=== PATIENT | male | born 1950 | race Hispanic/Latino ===

== ENCOUNTER → 2021-05-20 | Outpatient (CLI) | payer OTHER | END | disposition home or self-care (01) | LOC: SHCH 09:47 | PROVIDERS: ATTEND Internal Medicine Cardiovascular Disease | DX: I35.0 Nonrheumatic aortic (valve) stenosis (principal) | CPT/HCPCS: 93306; 93356 ==

== ENCOUNTER 2021-06-30 05:49 | Day surgery (SDC) | payer OTHER ==
[2021-06-27 10:44] LABS: BASOPHILS % (AUTO) 0.7 % (0.0-5.0); EOSINOPHILS % (AUTO) 3.3 % (0.0-8.0); HEMATOCRIT 34.3 % (42-54); LYMPHOCYTES % (AUTO) 16.6 % (21.0-51.0); MEAN CORPUSCULAR HEMOGLOBIN 32.5 pg (27.0-33.0); MEAN CORPUSCULAR HGB CONC 31.8 g/dL (32.0-36.0); MEAN CORPUSCULAR VOLUME 102.4 fL (79-99); NEUTROPHILS % (AUTO) 72.2 % (40.0-77.0); PLATELET COUNT (AUTO) 175 K/uL (130-400); RED BLOOD CELL COUNT(AUTO) 3.35 MIL/uL (4.50-6.20); RED CELL DISTRIBUTION WIDTH 13.8 % (11.0-15.5); WHITE BLOOD COUNT (AUTO) 8.3 K/uL (4.8-10.8)
[2021-06-27 10:45] LABS: APPEARANCE,URINE Clear (CLEAR); BILIRUBIN,URINE Negative (NEGATIVE); COLOR,URINE Dark Yellow (YELLOW); GLUCOSE, URINE (UA) Negative (NEGATIVE); KETONES,URINE Trace mg/dL (NEGATIVE); LEUKOCYTE ESTERASE ,URINE Negative (NEGATIVE); NITRATE,URINE Negative (NEGATIVE); OCCULT BLOOD,URINE Negative (NEGATIVE); PROTEIN,URINE Trace mg/dL (NEGATIVE)
[2021-06-27 10:52] LABS: CREATININE 1.2 mg/dL (0.5-1.5)
[2021-06-27 10:56] LABS: POTASSIUM 6.2 mmol/L (3.5-5.1)
[2021-06-27 11:13] LABS: BACTERIA,URINE Rare /HPF (None Seen); RBC,URINE 0-1 /HPF (0-1); SQUAMOUS EPITHELIAL CELL,UR Rare /HPF (0-2); WBC,URINE 0-1 /HPF (0-1)
[2021-06-27 11:48] LABS: INR 1.04 (0.85-1.15); PROTHROMBIN TIME 11.3 SEC (9.6-11.6)
[2021-06-27 11:49] LABS: PARTIAL THROMBOPLASTIN TIME 26.1 SEC (26.3-35.5)
[2021-06-30] VITALS (13 sets, daily range): BP systolic 102–172; BP diastolic 58–81
[~2021-06-30] VITALS: Ht 170.2 cm; Wt 65.3 kg
[~2021-06-30 05:49] MED LIST: ASPI-1022 PO; ATOR-2 PO; CARB-242 OP; CYCL100S4 PO; DILT180C88 PO; FERS325 PO; FINA5TAB41 PO; INSU100V12 SQ; METF-444 PO; METO-391 PO; MULT-1192 PO; vitamin d PO
[2021-06-30] MEDS ORDERED: 0.9%NACL 1000ML 1,000 ML IV ONE (06:20)
[2021-06-30 06:24] LABS: CREATININE 1.3 mg/dL (0.5-1.5); POTASSIUM 5.1 mmol/L (3.5-5.1)
[2021-06-30] MEDS ORDERED: MIDAZOLAM HCL 1 MG/ML 2ML VIAL ONE (07:33)
[2021-06-30] MEDS ORDERED: FENTANYL CITRATE PF 50 MCG/1 ML 2ML VIAL ONE (07:33)
[2021-06-30] MEDS ORDERED: IOHEXOL 350 MG/ML 100ML INFUS..BTL IV ONE (07:33)
[2021-06-30] MEDS ORDERED: NITROGLYCERIN 2 MG VIAL IV ONE (07:33)
[2021-06-30] MEDS ORDERED: HEPARIN 10,000 UNIT/10ML (1,000 UNIT/ML) VIAL ONE (07:33)
[2021-06-30] MEDS ORDERED: LIDOCAINE HCL 400MG/20ML VIAL ONE (07:34)
[2021-06-30] MEDS ORDERED: 0.9%NACL 1000ML 1,000 ML IV SCH (10:00)
[2021-06-30] MEDS ORDERED: DEXTROSE 50%-WATER 50 ML DISP.SYRIN IV PRN (10:00)
[2021-06-30] MEDS ORDERED: INSULIN HUMULIN R 100 UNIT/ML 3ML SQ SCH (11:30)
== END 2021-06-30 17:40 | disposition home or self-care (01) ==
LOC: DAH 05:49
PROVIDERS: ATTEND Internal Medicine Cardiovascular Disease
DX: I35.0 Nonrheumatic aortic (valve) stenosis (principal); I25.719 Atherosclerosis of autologous vein coronary artery bypass graft(s) with unspecified angina pectoris; I25.119 Atherosclerotic heart disease of native coronary artery with unspecified angina pectoris; I25.82 Chronic total occlusion of coronary artery; I27.20 Pulmonary hypertension, unspecified; I11.0 Hypertensive heart disease with heart failure; I50.32 Chronic diastolic (congestive) heart failure; E78.5 Hyperlipidemia, unspecified; E11.9 Type 2 diabetes mellitus without complications; D50.0 Iron deficiency anemia secondary to blood loss (chronic); Z79.01 Long term (current) use of anticoagulants; Z79.82 Long term (current) use of aspirin; Z79.84 Long term (current) use of oral hypoglycemic drugs; Z79.899 Other long term (current) drug therapy; Z98.890 Other specified postprocedural states
CPT/HCPCS: 36415; 71045; 80048; 81001; 82948; 85025; 85610; 85730; 93005; 93461; 99156; 99157; A4606; C1760; C1769; C1893; C1894; J1644; J2250; J3010; J3490; J7030; Q9967

== ENCOUNTER → 2023-03-21 | Outpatient (CLI) | payer OTHER | END | disposition home or self-care (01) | LOC: SHCH 09:40 | PROVIDERS: ATTEND Internal Medicine Cardiovascular Disease | DX: Z95.2 Presence of prosthetic heart valve (principal) | CPT/HCPCS: 93306 ==

== ENCOUNTER → 2024-01-01 | Outpatient (CLI) | payer OTHER ==
[~2024-01-01] MED LIST changes: +CARB-182 OP; -CARB-242 OP
== END | disposition home or self-care (01) ==
LOC: RAH 10:07
PROVIDERS: ATTEND Internal Medicine
DX: I69.911 Memory deficit following unspecified cerebrovascular disease (principal)
CPT/HCPCS: 70551

== ENCOUNTER → 2024-12-29 | Outpatient (CLI) | payer OTHER ==
--- NOTE | 2025-01-01 08:10 | HMCSR ---
APPROVED REPORT EXAM: Two-dimensional and M-mode echocardiogram with Doppler and color Doppler. 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 2D Dimensions RVDd4.3 cmLVEF(%)61.3 (>50%)LVED Vol(simp.)112.0 mL IVSd1.5 (0.7-1.1cm)FS(%)32 %LVES Vol(simp.)44.0 mL LVDd3.9 (3.8-5.6cm)IVC diam2.0 cmLVEF(%, simp.)60 % PWd1.2 (0.7-1.1cm)LA ESV INDEX (BP)37.67 mL/m2 LVDs2.6 (2.5-4.0cm) Aortic Valve AoV Vmax1.7 m/Elicia Peak GR11.3 mmHgLVOT Vmax1.1 m/s AoV VTI0.4 mAo Mean GR4.8 mmHgLVOT VTI0.34 m Mitral Valve MV E Kvgm093.3 cm/sDECEL Rsfa208 msMV Peak GR20 mmHg MV A Iyfw140.6 cm/sP 1/2 T58 msMV Mean GR7 mmHg E/A ratio1.5MVA (PHT)3.8 cm2 MR Max PG168 mmHg TDI E/E' Mvbcdm64.2E/E' Woqerjw56.4 Pulmonary Valve PV Vmax1.0 m/sPV VTI0.26 mPV Mean GR2 mmHg PV Peak GR3.8 mmHgPI End Catie. Bhupendra 1.6 cm/s Tricuspid Valve TR Vmax2.6 m/sRAP (EST) 8 nuFuOFAD66.0 mmHg TR Peak GR27.0 mmHg Left Ventricle The left ventricle chamber size is normal. There is normal LV segmental wall motion. There is moderat e concentric LVH. LVEF is 60-65%. Grade 2 diastolic dysfunction. Right Ventricle The right ventricle is mildly dilated. The right ventricular systolic function is normal. Atria The left atrium is mildly dilated. The right atrium size is normal. Aortic Valve Medtronic CoreValve TAVR is present. Prosthetic aortic valve is normal in appearance and well seated. Leaflets are not well seen. Trace aortic perivalvular and central valvular AR. Maximum pressure grad ient of 11 mmHg and mean pressure gradient of 5 mmHg. Maximum pressure gradient of 11 mmHg and mean p ressure gradient of 5 mmHg. Mitral Valve Posterior mitral valve leafllet is mildly calcified, with restricted mobility. Pressure 1/2 time is 5 8 ms with MV area of 3.8 cm2 (likely inaccurate). MV mean gradient 7 mmHg consistent with moderate M S. Mitral regurgitation is moderate. Mean pressure gradient of 7 mmHg. Tricuspid Valve The tricuspid valve leaflets appear normal. There is trace to mild tricuspid regurgitation. Right isaías tricular systolic pressure is estimated at 30-40 mmHg. Pulmonic Valve The pulmonic valve leaflets are thin and pliable; valve motion is normal. There is trace pulmonic rama vular regurgitation. Great Vessels The aortic root is not well visualized but is probably normal size. IVC is dilated and collapses >50% with inspiration. Pericardium No pericardial effusion. Conclusion The left ventricle chamber size is normal. There is moderate concentric LVH. There is normal LV segmental wall motion. LVEF is 60-65%. Grade 2 diastolic dysfunction. Medtronic CoreValve TAVR is present. Prosthetic aortic valve is normal in appearance and well seated. Leaflets are not well seen. Trace aortic perivalvular and central valvular AR. Maximum pressure gradient of 11 mmHg and mean pressure gradient of 5 mmHg. Posterior mitral valve leafllet is mildly calcified, with restricted mobility. Pressure 1/2 time is 58 ms with MV area of 3.8 cm2 (likely inaccurate). MV mean gradient 7 mmHg consistent with moderate MS. Mitral regurgitation is moderate. No pericardial effusion.
== END | disposition home or self-care (01) ==
LOC: SHCH 08:38
PROVIDERS: ATTEND Internal Medicine Cardiovascular Disease
DX: I08.1 Rheumatic disorders of both mitral and tricuspid valves (principal); I11.9 Hypertensive heart disease without heart failure; Z95.2 Presence of prosthetic heart valve
CPT/HCPCS: 93306